=== PATIENT | female | born 2005 | race Caucasian/White ===

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

== ENCOUNTER → 2024-10-01 11:50 | Outpatient (CLI) | payer OTHER, SELFPAY | PROVIDERS: PCP Student in an Organized Health Care Education/Training Program; Visit Provider Nurse Practitioner Family | DX: J02.9 Acute pharyngitis, unspecified (principal) | CPT/HCPCS: 87070 ==